=== PATIENT | male | born 1985 | race Caucasian/White ===

== ENCOUNTER 2017-02-07 13:50 | Emergency (ER) | payer MEDICAID ==
[2017-02-07 14:05] VITALS: BP 122/78
--- NOTE | 2017-02-07 14:30 | EDM.PDOC ---
ED HPI GENERAL MEDICAL PROBLEM - General Chief Complaint: Allergic Reaction Stated Complaint: BEE STING ABOUT 24 HOURS AGO Time Seen by Provider: 02/07/17 14:05 Source of Information: Reports: Patient History Limitations: Reports: No Limitations - History of Present Illness INITIAL COMMENTS - FREE TEXT/NARRATIVE: Patient presents to the emergency room today with complaints of pain and swelling to left hand from a bee sting yesterday. He denies difficulty breathing, edema of lips or tongue. Onset: Sudden Onset Date: 02/06/17 Duration: Day(s): Location: Reports: Upper Extremity, Right, Other (sting to right ear, right lower leg and left hand. ) Quality: Reports: Ache, Throbbing Severity: Moderate Improves with: Reports: None Worsens with: Reports: Movement Associated Symptoms: Reports: No Other Symptoms Treatments DOCTOR OF PODIATRIC MEDICINE: Reports: Other (see below) (benadryl) Left Hand Pain Score (Numeric/FACES): 5 - Related Data Allergies Allergy/AdvReac Type Severity Reaction Status Date / Time No Known Allergies Allergy Verified 03/25/14 11:05 Home Meds: Home Meds Ibuprofen 800 mg PO 03/25/14 [History] Butalb/Acetaminophen/Caffeine [Hlhiso-Mkbbynfa-Fmav 50-325-40] 50 mg PO PRN 12/20 [History] LORazepam [Ativan] 1 mg PO Q8H PRN 04/11/16 [History] Past Medical History Other HEENT History: R EYE REPAIR X 16 - Past Surgical History Other Musculoskeletal Surgeries/Procedures:: LLE AND FOOT REPAIR X 2 - History Comment History Comment: 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 Social & Family History - Tobacco Use Smoking Status *Q: Unknown Ever Smoked Second Hand Smoke Exposure: No - Alcohol Use Days Per Week of Alcohol Use: 0 - Recreational Drug Use Recreational Drug Use: Yes Recreational Drug Type: Reports: Marijuana/Hashish Recreational Drug Use Frequency: Monthly ED ROS ALLERGIC REACTION - Review of Systems Review Of Systems: See Below Constitutional: Denies: Fever, Chills HEENT: Reports: Ear Pain. Denies: Ear Discharge, Throat Pain, Throat Swelling Respiratory: Denies: Shortness of Breath, Wheezing, Pleuritic Chest Pain, Cough , Sputum Cardiovascular: Denies: Chest Pain, Lightheadedness, Palpitations, PND, Syncope Endocrine: Denies: No Symptoms GI/Abdominal: Denies: No Symptoms Musculoskeletal: Reports: Other (Pain to left hand with edema. ) Skin: Reports: Other (edema and warmth to left hand, right ear. ) Neurological: Denies: Confusion, Dizziness, Headache, Numbness, Paresthesia, Trouble Speaking, Difficulty Walking, Weakness, Gait Disturbance Psychiatric: Reports: No Symptoms Hematologic/Lymphatic: Reports: No Symptoms Immunologic: Reports: No Symptoms ED EXAM GENERAL NO PERIP PULSE - Physical Exam Exam: See Below Text/Narrative:: Bill is an alert, oriented and pleasant 31 year old male. He reports he was mowing his grass yesterday and was stung 3 to 4 times by bees. Bee stings to right ear, right lower leg and left base of middle finger. He reports he chugged some childrens liquid benadryl after the stings. He denies SOB or difficulty breathing, however reports he continues to have pain and edema to left hand. Exam Limited By: No Limitations General Appearance: Alert, WD/WN, No Apparent Distress Eye Exam: Bilateral Eye: EOMI (With exception of right eye lack of muscle control wich is not new. ), PERRL Ears: Normal External Exam, Normal Canal, Hearing Grossly Normal, Normal TMs, Other (No edema or tenderness to area of bee sting on right ear lobe. ) Nose: Normal Inspection, Normal Mucosa, No Blood Throat/Mouth: Normal Inspection, Normal Lips, Normal Teeth, Normal Gums, Normal Oropharynx, Normal Voice, No Airway Compromise Head: Atraumatic, Normocephalic Neck: Normal Inspection, Supple, Non-Tender, Full Range of Motion Respiratory/Chest: No Respiratory Distress, Lungs Clear, Normal Breath Sounds, No Accessory Muscle Use, Chest Non-Tender Cardiovascular: Normal Peripheral Pulses, Regular Rate, Rhythm, No Edema, No Gallop, No Murmur Back Exam: Normal Inspection, Full Range of Motion. No: CVA Tenderness (R), CVA Tenderness (L) Extremities: No Pedal Edema, Normal Capillary Refill, Increased Warmth, Other ( trace edema to left hand, full range of motion, sensation intact. All other extremities have normal inspection, color. ) Neurological: Alert, Oriented, CN II-XII Intact, Normal Cognition, Normal Gait, Normal Reflexes, No Motor/Sensory Deficits Psychiatric: Normal Affect, Normal Mood Skin Exam: Warm, Dry Lymphatic: No Adenopathy Course - Vital Signs Last Recorded V/S: Last Vital Signs Temp 36.2 C 02/07/17 14:03 Pulse 78 02/07/17 14:03 Resp 15 02/07/17 14:03 BP 122/78 02/07/17 14:03 Pulse Ox 98 02/07/17 14:03 - Re-Assessments/Exams Free Text/Narrative Re-Assessment/Exam: 02/07/17 14:35 Patient questions answered, he is in agreement with plan. Departure - Departure Time of Disposition: 14:25 Disposition: Home, Self-Care 01 Condition: Good Clinical Impression: Insect bite, Edema of hand, Bee sting reaction - Discharge Information Instructions: Insect Bite, Bee, Wasp, or Hornet Sting Referrals: Mario Mitchell Sr, MD [Primary Care Provider] - Forms: ED Department Discharge Additional Instructions: You are suffering a localized reaction of the left hand from a bee sting. This can cause pain, swelling and tenderness. There is no sign of infection at this time. You can take prednisone 40mg by mouth once a day for 5 days. You can also take ibuprofen 800mg by mouth three times a day for pain. Use of benadryl 50mg by mouth two or three times a day can also help. Be careful with new exposures to bee stings, watch for difficulty breathing, lip or tongue swelling. Return for worsening, issues or concerns. - Assessment/Plan Assessment:: Insect bite Bee sting reaction Edema of hand - left Plan: Localized reaction to bee sting, no sign of infection at this time. Patient can take prednisone 40mg by mouth once a day for 5 days to help with edema, inflammation. He can also take ibuprofen 800mg by mouth three times a day for pain. Use of benadryl 50mg by mouth two or three times a day can also help. Patient needs to be careful with new exposures to bee stings, watch for difficulty breathing, lip or tongue swelling. Return for worsening, issues or concerns. Patient counseled about use of benadryl along with other chronic sedating medications and medical marijuana, he verbalized understanding.
== END 2017-02-07 15:08 | disposition home or self-care (01) ==
LOC: JP.ED 13:50
DX: T63.441A Toxic effect of venom of bees, accidental (unintentional), initial encounter (principal)
CPT/HCPCS: 99283

== ENCOUNTER 2017-03-17 17:40 | Emergency (ER) | payer MEDICAID ==
[2017-03-17 18:04] VITALS: BP 140/81
--- NOTE | 2017-03-17 18:58 | EDM.PDOC ---
ED HPI GENERAL MEDICAL PROBLEM - General Chief Complaint: Upper Extremity Injury/Pain Stated Complaint: PAINFUL NECK AND RIGHT SHOULDER Time Seen by Provider: 03/17/17 18:09 Source of Information: Reports: Patient History Limitations: Reports: No Limitations - History of Present Illness INITIAL COMMENTS - FREE TEXT/NARRATIVE: this patient complains of pain in the upper part of the right trapezius right shoulder and right side of his neck after a fall on his shoulder last night. He says it sign of hurts to move his neck a little bit and when he moves his right shoulder. No other injuries. He has been taking some Flexeril already and also takes some lorazepam when necessary. shoulder Pain Score (Numeric/FACES): 9 - Related Data Allergies Allergy/AdvReac Type Severity Reaction Status Date / Time No Known Allergies Allergy Verified 03/19/17 18:38 Home Meds: Home Meds Ibuprofen 800 mg PO Q6HR PRN 03/25/14 [History] LORazepam [Ativan] 1 mg PO Q8H PRN 04/11/16 [History] ClonazePAM [KlonoPIN] 1 mg PO Q4HR PRN 03/17/17 [History] Diclofenac Sodium [Diclofenac Sodium] 4 gm .XX QID 03/17/17 [History] EPINEPHrine [Epinephrine] 0.3 mg PO ASDIRECTED 03/17/17 [History] Escitalopram [Lexapro] 20 mg PO DAILY 03/17/17 [History] Morphine [MS Contin] 15 mg PO BEDTIME 03/17/17 [History] Naproxen [Naprosyn] 500 mg PO BID PRN 03/17/17 [History] Pramipexole [Mirapex] 0.25 mg PO BEDTIME 03/17/17 [History] oxyCODONE HCl [Oxycodone HCl] 10 - 20 mg PO Q4HR PRN 03/17/17 [History] Past Medical History Other HEENT History: R EYE REPAIR X 16 Musculoskeletal History: Reports: Fracture, Other (See Below) Other Musculoskeletal History: shoulder pain. 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 Social & Family History - Tobacco Use Smoking Status *Q: Never Smoker Second Hand Smoke Exposure: No - Caffeine Use Caffeine Use: Reports: Coffee - Alcohol Use Days Per Week of Alcohol Use: 0 - Recreational Drug Use Recreational Drug Use: Yes Recreational Drug Type: Reports: Marijuana/Hashish, Opium Recreational Drug Use Frequency: Daily Review of Systems - Review of Systems Review Of Systems: ROS reveals no pertinent complaints other than HPI. ED EXAM, GENERAL - Physical Exam Exam: See Below Exam Limited By: No Limitations General Appearance: Alert, WD/WN, Mild Distress Neck: Normal Inspection Back Exam: Muscle Spasm (some muscle spasm of the upper fibers of the right trapezius) Extremities: Other (full range of motion of the right shoulder.) Course - Vital Signs Last Recorded V/S: Last Vital Signs Temp 36.9 C 03/17/17 18:08 Pulse 81 03/17/17 18:08 Resp 20 03/17/17 18:08 BP 140/81 03/17/17 18:08 Pulse Ox 97 03/17/17 18:08 Departure - Departure Time of Disposition: 18:54 Disposition: Home, Self-Care 01 Condition: Fair Clinical Impression: Trapezius muscle spasm - Discharge Information Instructions: Musculoskeletal Pain Referrals: Mario Mitchell Sr, MD [Primary Care Provider] - Forms: ED Department Discharge Additional Instructions: You have a spasm of the upper fibers of the trapezius muscle. The nerves to this muscle come from your neck and you may have a pinched nerve that is causing the spasm. This is separate from the AC joint problem. Try increasing the lorazepam to 2 mg 3 times per day. In stead of using Flexeril, try the new medication Soma. These meds along with your other ones can cause a lot of sedation so use with extreme caution. Definitely don't drink any alcohol. Plan to see your doctor in the next few days.
== END 2017-03-17 19:04 | disposition home or self-care (01) ==
LOC: JP.ED 17:40
DX: M62.838 Other muscle spasm (principal); F41.9 Anxiety disorder, unspecified; F32.9 Major depressive disorder, single episode, unspecified; Z79.899 Other long term (current) drug therapy
CPT/HCPCS: 99283

== ENCOUNTER 2017-03-19 17:28 | Emergency (ER) | payer MEDICAID ==
[2017-03-19 18:25] VITALS: BP 122/77
[2017-03-19] MEDS ORDERED: HYDROmorphone 0.5 MG/0.5 ML Syringe IM ONE (20:39)
--- NOTE | 2017-03-19 20:59 | EDM.PDOC ---
ED HPI GENERAL MEDICAL PROBLEM - General Chief Complaint: General Stated Complaint: R SHOULDER INJURY Time Seen by Provider: 03/19/17 18:58 Source of Information: Reports: Patient History Limitations: Reports: No Limitations - History of Present Illness INITIAL COMMENTS - FREE TEXT/NARRATIVE: History of present illness: [31-year-old male presenting stating that he fell 4 days ago on his right shoulder and has been having trouble with pain in that shoulder since that time. He's unable to abduct his arm without pain and feels that his right shoulder is swollen. Apparently is in a program in the [facility] for chronic pain and I reviewed the [place] prescription monitoring program and found that he had received 180 10 mg oxycodone's or 5 mg oxycodone's that would last him 30 days and so I question him about this and he called his doctor and I spoke with her on the phone and she deferred due to my judgment as far as whether not I would provide him with any additional pain medication based on my history and examination of the patient. Patient himself states that he plans to follow-up with his pain doctor tomorrow in the [facility] and just wants to be able to get by until tomorrow when he can do that.] Review of systems: As per history of present illness and below otherwise all systems reviewed and negative. Past medical history: As per history of present illness and as reviewed below otherwise noncontributory. Surgical history: As per history of present illness and as reviewed below otherwise noncontributory. Social history: No reported history of drug or alcohol abuse. Family history: As per history of present illness and as reviewed below otherwise noncontributory. Physical exam: HEENT: Atraumatic, normocephalic, pupils reactive, negative for conjunctival pallor or scleral icterus, mucous membranes moist, throat clear, neck supple, nontender, trachea midline. Lungs: Clear to auscultation, breath sounds equal bilaterally, chest nontender. Heart: S1S2, regular, negative for clicks, rubs, or JVD. Extremities: Examination of the right shoulder does show tenderness to palpation along the clavicle and the deltoid muscle and pain with any effort to abduct his right shoulder both passive and active. He does seem to have some tenderness on palpation of his before meals joint as well. Neuro: Awake, alert, oriented. Exam nonfocal. Diagnostics: [X-rays of the right shoulder reveal no fractures] Therapeutics: [Patient was given Dilaudid 0.5 mg IM and sent out with 10 Percocet, /] Impression: [Right shoulder injury] Plan: [He is given a disc of the x-rays in provided with additional pain medication and will follow up with his pain doctor tomorrow the cities.] Definitive disposition and diagnosis as appropriate pending reevaluation and review of above. Right Shoulder Pain Score (Numeric/FACES): 9 - Related Data Allergies Allergy/AdvReac Type Severity Reaction Status Date / Time No Known Allergies Allergy Verified 03/19/17 18:38 Home Meds: Home Meds Ibuprofen 800 mg PO Q6HR PRN 03/25/14 [History] LORazepam [Ativan] 1 mg PO Q8H PRN 04/11/16 [History] ClonazePAM [KlonoPIN] 1 mg PO Q4HR PRN 03/17/17 [History] Diclofenac Sodium [Diclofenac Sodium] 4 gm .XX QID 03/17/17 [History] EPINEPHrine [Epinephrine] 0.3 mg PO ASDIRECTED 03/17/17 [History] Escitalopram [Lexapro] 20 mg PO DAILY 03/17/17 [History] Morphine [MS Contin] 15 mg PO BEDTIME 03/17/17 [History] Naproxen [Naprosyn] 500 mg PO BID PRN 03/17/17 [History] Pramipexole [Mirapex] 0.25 mg PO BEDTIME 03/17/17 [History] oxyCODONE HCl [Oxycodone HCl] 10 - 20 mg PO Q4HR PRN 03/17/17 [History] Past Medical History Other HEENT History: R EYE REPAIR X 16 Musculoskeletal History: Reports: Fracture, Other (See Below) Other Musculoskeletal History: shoulder pain. 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 Social & Family History - Tobacco Use Smoking Status *Q: Former Smoker Used Tobacco, but Quit: Yes Month Tobacco Last Used: 0 Second Hand Smoke Exposure: No - Caffeine Use Caffeine Use: Reports: Coffee - Alcohol Use Days Per Week of Alcohol Use: 0 - Recreational Drug Use Recreational Drug Use: No Recreational Drug Type: Reports: Marijuana/Hashish, Opium Recreational Drug Use Frequency: Daily ED ROS GENERAL - Review of Systems Review Of Systems: ROS reveals no pertinent complaints other than HPI. ED EXAM, GENERAL - Physical Exam Exam: See Below Course - Vital Signs Last Recorded V/S: Last Vital Signs Temp 36.0 C 03/19/17 18:37 Pulse 69 03/19/17 18:37 Resp 16 03/19/17 18:37 BP 122/77 03/19/17 18:37 Pulse Ox 96 03/19/17 18:37 - Orders/Labs/Meds Orders: Active Orders 24 hr Category Date Time Status Shoulder Comp Rt [CR] Stat Exams 03/19/17 19:30 Ordered Meds: Medications Discontinued Medications Generic Name Dose Route Start Last Admin Trade Name Freq PRN Reason Stop Dose Admin Hydromorphone HCl 0.5 mg 03/19/17 20:39 Dilaudid IM 03/19/17 20:40 ONETIME ONE Departure - Departure Time of Disposition: 20:59 Disposition: Home, Self-Care 01 Condition: Good Clinical Impression: Right shoulder injury Qualifiers: Encounter type: initial encounter Qualified Code(s): S49.91XA - Unspecified injury of right shoulder and upper arm, initial encounter - Discharge Information Referrals: Mario Mitchell Sr, MD [Primary Care Provider] - Additional Instructions: Please follow-up with your chronic pain doctor tomorrow as we discussed. - My Orders Last 24 Hours: My Active Orders 03/19/17 19:30 Shoulder Comp Rt [CR] Stat - Assessment/Plan Last 24 Hours: My Active Orders 03/19/17 19:30 Shoulder Comp Rt [CR] Stat
--- NOTE | 2017-03-20 11:50 | CR ---
Mild AC joint hypertrophy. No evidence for fracture.
== END 2017-03-19 21:10 | disposition home or self-care (01) ==
LOC: JP.ED 17:28
DX: S49.91XA Unspecified injury of right shoulder and upper arm, initial encounter (principal); F41.9 Anxiety disorder, unspecified; F32.9 Major depressive disorder, single episode, unspecified; Z79.899 Other long term (current) drug therapy; Z87.891 Personal history of nicotine dependence; X58.XXXA Exposure to other specified factors, initial encounter
CPT/HCPCS: 73030; 96372; 99284; J1170

== ENCOUNTER 2017-05-29 17:30 | Emergency (ER) | payer MEDICAID ==
[2017-05-29 17:52] VITALS: BP 127/71
[2017-05-29] MEDS ORDERED: HYDROmorphone 1 MG/ML Syringe IM ONE (18:14)
--- NOTE | 2017-05-29 18:17 | EDM.PDOC ---
ED HPI GENERAL MEDICAL PROBLEM - General Chief Complaint: Lower Extremity Injury/Pain Stated Complaint: FELL HURT L ANKLE AND HIP Time Seen by Provider: 05/29/17 18:08 Source of Information: Reports: Patient, RN Notes Reviewed History Limitations: Reports: No Limitations - History of Present Illness INITIAL COMMENTS - FREE TEXT/NARRATIVE: 31-year-old gentleman presents emergency department day complaint of left ankle pain, he has known history of chronic reflex dystrophy is on a pain contract does take combination of MS Contin and oxycodone for pain control which she has taken today he recently had an injury at home where he slipped on some ice and rolled his left ankle he is having difficulty ambulating and difficulty keeping his pain under control he states he has intolerances to tramadol and Toradol as well Left Ankle Pain Score (Numeric/FACES): 9 - Related Data Allergies Allergy/AdvReac Type Severity Reaction Status Date / Time No Known Allergies Allergy Verified 03/19/17 18:38 Home Meds: Home Meds Ibuprofen 800 mg PO Q6HR PRN 03/25/14 [History] ClonazePAM [KlonoPIN] 1 mg PO Q4HR PRN 03/17/17 [History] EPINEPHrine [Epinephrine] 0.3 mg PO ASDIRECTED 03/17/17 [History] Morphine [MS Contin] 15 mg PO BEDTIME 03/17/17 [History] oxyCODONE HCl [Oxycodone HCl] 10 - 20 mg PO Q4HR PRN 03/17/17 [History] Past Medical History HEENT History: Reports: Impaired Vision Other HEENT History: R EYE REPAIR X 16 Musculoskeletal History: Reports: Fracture, Other (See Below) Other Musculoskeletal History: shoulder pain. 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 Social & Family History - Tobacco Use Smoking Status *Q: Former Smoker Used Tobacco, but Quit: Yes Month Tobacco Last Used: 10 years ago Second Hand Smoke Exposure: No - Caffeine Use Caffeine Use: Reports: Coffee, Soda - Alcohol Use Days Per Week of Alcohol Use: 0 - Recreational Drug Use Recreational Drug Use: Yes Recreational Drug Type: Reports: Marijuana/Hashish Recreational Drug Use Frequency: Daily Review of Systems - Review of Systems Review Of Systems: See Below Respiratory: Reports: No Symptoms Cardiovascular: Reports: No Symptoms Musculoskeletal: Reports: Joint Pain (Ankle pain left) Skin: Reports: No Symptoms Neurological: Reports: Numbness (Not new), Tingling ED EXAM, GENERAL - Physical Exam Exam: See Below Free Text/Narrative:: Examination of the left ankle I don't appreciate any erythema there is no edema exam is difficult as he is uncomfortable with any amount of palpation laterally or medially no maneuvers can be performed, he can ambulate but he favors the right foot pedal pulses +2 Exam Limited By: No Limitations General Appearance: Alert, WD/WN, No Apparent Distress Respiratory/Chest: No Respiratory Distress Course - Vital Signs Last Recorded V/S: Last Vital Signs Temp 96.8 F 05/29/17 17:48 Pulse 87 05/29/17 17:48 Resp 18 05/29/17 17:48 BP 127/71 05/29/17 17:48 Pulse Ox 96 05/29/17 17:48 - Orders/Labs/Meds Orders: Active Orders 24 hr Category Date Time Status Ankle Min 3V Lt [CR] Stat Exams 05/29/17 18:14 Taken Meds: Medications Discontinued Medications Generic Name Dose Route Start Last Admin Trade Name Freq PRN Reason Stop Dose Admin Hydromorphone HCl 1 mg 05/29/17 18:14 Dilaudid IM 05/29/17 18:15 ONETIME ONE Departure - Departure Time of Disposition: 19:01 Disposition: Home, Self-Care 01 Condition: Poor Clinical Impression: Narcotic dependency, continuous Left ankle pain Qualifiers: Chronicity: acute Qualified Code(s): M25.572 - Pain in left ankle and joints of left foot - Discharge Information Referrals: Mario Mitchell Sr, MD [Primary Care Provider] - Forms: ED Department Discharge Additional Instructions: Use Percocet as needed for breakthrough pain, Please followup with your primary care provider in 3-5 days if not better, please call return to the emergency department with worsening of symptoms. - My Orders Last 24 Hours: My Active Orders 05/29/17 18:14 Ankle Min 3V Lt [CR] Stat - Assessment/Plan Last 24 Hours: My Active Orders 05/29/17 18:14 Ankle Min 3V Lt [CR] Stat Plan: Assessment Acuity = acute Site and laterality = left ankle pain complicated patient with history of extensive narcotic use Etiology = secondary to trauma Manifestations = tolerance to opiates Location of injury = Home left ankle x-ray Labs: Left ankle x-ray I did review films myself I cannot appreciate any acute process, the official read from radiology is pending Plan I did given him 1 mg Dilaudid IM he states this provided no relief of his pain he is on a substantial amount of narcotics I stated I am uncomfortable providing him any more narcotics in the acute setting I did nic him 10 Percocet 5/325 one tab by mouth 3 times a day when necessary so that he can make it to his pain clinic physician on Friday, I am suspicious of this gentleman as this is a similar story on the last note Patient was in agreement with the plan all questions were answered, they were instructed to return to the emergency department or call for worsening symptoms. This note was dictated using [employer] voice recognition software please call with any questions.
--- NOTE | 2017-05-30 09:10 | CR ---
Ankle Min 3V Lt HISTORY: Pain COMPARISON: None FINDINGS: Fracture or dislocation. Mild soft tissue swelling.
== END 2017-05-29 19:17 | disposition home or self-care (01) ==
LOC: JP.ED 17:30
DX: M25.572 Pain in left ankle and joints of left foot (principal); F11.20 Opioid dependence, uncomplicated; Z88.5 Allergy status to narcotic agent; Z87.891 Personal history of nicotine dependence; W00.0XXA Fall on same level due to ice and snow, initial encounter; Y92.009 Unspecified place in unspecified non-institutional (private) residence as the place of occurrence of the external cause
CPT/HCPCS: 73610-26-LT; 73610-LT; 96372; 99284-25; J1170

== ENCOUNTER 2017-06-07 13:47 | Emergency (ER) | payer MEDICAID ==
[2017-06-07 14:54] VITALS: BP 124/67
--- NOTE | 2017-06-07 15:31 | EDM.PDOC ---
ED HPI GENERAL MEDICAL PROBLEM - General Chief Complaint: Lower Extremity Injury/Pain Stated Complaint: PAIN IN LEFT FOOT Time Seen by Provider: 06/07/17 15:11 Source of Information: Reports: Patient, Old Records, RN Notes Reviewed History Limitations: Reports: No Limitations - History of Present Illness INITIAL COMMENTS - FREE TEXT/NARRATIVE: 31-year-old gentleman presents emergency department day complaint of left foot pain he was evaluated by his primary care on 03 June underwent x-rays of the ankle and foot which show only soft tissue swelling no fracture was noted, he states the pain is unbearable eyes difficult for him to ambulate and his usual narcotic medication does not control the pain. The mechanism of action he states that he was walking caught his toe in a hole which then bent the foot backward at the ankle which then caused the plantar surface of his foot to touch his calf Left Ankle Pain Score (Numeric/FACES): 8 - Related Data Allergies Allergy/AdvReac Type Severity Reaction Status Date / Time No Known Allergies Allergy Verified 06/07/17 14:56 Home Meds: Home Meds ClonazePAM [KlonoPIN] 1 mg PO Q4HR PRN 03/17/17 [History] EPINEPHrine [Epinephrine] 0.3 mg PO ASDIRECTED 03/17/17 [History] Morphine [MS Contin] 15 mg PO TID 03/17/17 [History] oxyCODONE HCl [Oxycodone HCl] 10 - 20 mg PO Q4HR PRN 03/17/17 [History] Past Medical History HEENT History: Reports: Impaired Vision Other HEENT History: R EYE REPAIR X 16 Musculoskeletal History: Reports: Fracture, Other (See Below) Other Musculoskeletal History: shoulder pain. CRPS in the left ankle Psychiatric History: Reports: Addiction (Narcotics), Anxiety, Bipolar, Depression, PTSD - Past Surgical History Head Surgeries/Procedures: Reports: None HEENT Surgical History: Reports: None Other Musculoskeletal Surgeries/Procedures:: LLE AND FOOT REPAIR X 2 - History Comment History Comment: Patient reports he is disabled and take shelter narcotic medication as well as medical marijuana. Social & Family History - Family History Family Medical History: Noncontributory - Tobacco Use Smoking Status *Q: Former Smoker Years of Tobacco use: 15 Packs/Tins Daily: 1 Used Tobacco, but Quit: Yes Month Tobacco Last Used: december Tobacco Use Comment: quit 12 years ago Second Hand Smoke Exposure: No - Caffeine Use Caffeine Use: Reports: Coffee, Soda - Alcohol Use Days Per Week of Alcohol Use: 0 - Recreational Drug Use Recreational Drug Use: Yes Drug Use in Last 12 Months: Yes Recreational Drug Type: Reports: Other (see below) Other Recreational Drug Type: medical marijuana Recreational Drug Use Frequency: Daily Review of Systems - Review of Systems Review Of Systems: See Below Constitutional: Reports: No Symptoms Respiratory: Reports: No Symptoms Cardiovascular: Reports: No Symptoms Musculoskeletal: Reports: Foot Pain Neurological: Reports: No Symptoms ED EXAM, GENERAL - Physical Exam Exam: See Below Free Text/Narrative:: Examination of left foot I do appreciate some mild amount of edema around the ankle there is some faint bruising which is noted at the medial aspect below the medial malleolus pedal pulse is +2 limited range of motion secondary to pain unable to perform any other aspects of the exam secondary to pain Course - Vital Signs Last Recorded V/S: Last Vital Signs Temp 97.8 F 06/07/17 14:51 Pulse 71 06/07/17 14:51 Resp 16 06/07/17 14:51 BP 124/67 06/07/17 14:51 Pulse Ox 93 L 06/07/17 14:51 - Orders/Labs/Meds Orders: Active Orders 24 hr Category Date Time Status Foot wo Cont Lt [CT] Stat Exams 06/07/17 15:27 Taken Meds: Medications Discontinued Medications Generic Name Dose Route Start Last Admin Trade Name Aruna PRN Reason Stop Dose Admin Ketorolac Tromethamine 60 mg 06/07/17 16:18 06/07/17 16:24 Toradol IM 06/07/17 16:19 60 mg ONETIME ONE Administration Departure - Departure Time of Disposition: 16:43 Disposition: Home, Self-Care 01 Condition: Fair Clinical Impression: Sprain of left foot Qualifiers: Encounter type: initial encounter Qualified Code(s): S93.602A - Unspecified sprain of left foot, initial encounter - Discharge Information Referrals: Mario Mitchell Sr, MD [Primary Care Provider] - Forms: ED Department Discharge Additional Instructions: Please followup with your primary care provider in 3-5 days if not better, please call return to the emergency department with worsening of symptoms. - My Orders Last 24 Hours: My Active Orders 06/07/17 15:27 Foot wo Cont Lt [CT] Stat - Assessment/Plan Last 24 Hours: My Active Orders 06/07/17 15:27 Foot wo Cont Lt [CT] Stat Plan: Assessment Acuity = acute Site and laterality = left foot sprain, cannot gentleman with chronic narcotic use Etiology = secondary to trauma Manifestations = none Location of injury = Home Lab values = CT scan of the midfoot and hindfoot show no acute process Plan I did review CT scan results with him he was provided Toradol, I also consult with his pain clinic spoke to the physician medical transcription editor recommended no narcotics if felt they were not warranted I could not appreciate any fracture there was none on CT scan I felt narcotics were not appropriate since he has a heavy dose of narcotics already, keep follow-up appointment with primary care Patient was in agreement with the plan all questions were answered, they were instructed to return to the emergency department or call for worsening symptoms. This note was dictated using [employer] voice recognition software please call with any questions.
[2017-06-07] MEDS ORDERED: Ketorolac 60 MG/2 ML SDV IM ONE (16:18)
== END 2017-06-07 16:35 | disposition home or self-care (01) ==
LOC: JP.ED 13:47
DX: S93.602A Unspecified sprain of left foot, initial encounter (principal); Z87.891 Personal history of nicotine dependence; W19.XXXA Unspecified fall, initial encounter
CPT/HCPCS: 73700; 96372; 99284; J1885

== ENCOUNTER 2017-09-13 18:29 | Emergency (ER) | payer MEDICARE, MEDICAID ==
[2017-09-13] MEDS ORDERED: HYDROmorphone 1 MG/ML Syringe IVPUSH ONE (18:52)
[2017-09-13] MEDS ORDERED: Ondansetron 4 MG/2 ML SDV IVPUSH ONE (18:52)
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
[2017-09-13] MEDS ORDERED: Lactated Ringers 1,000 ML IV SCH (19:00)
[2017-09-13] MEDS ORDERED: Sodium Chloride 0.9% 10 ML Syringe FLUSH ONE (19:01)
[2017-09-13] MEDS ORDERED: Sodium Chloride 0.9% 100 ML IV ONE (19:01)
[2017-09-13] MEDS: Sodium Chloride 0.9% 10 ML Syringe FLUSH PRN ×4 (19:10→21:08)
[2017-09-13] MEDS ORDERED: Iopamidol 612 MG/ML 100 ML Bottle IV SCH (19:15)
[2017-09-13] MEDS ORDERED: HYDROmorphone 0.5 MG/0.5 ML Syringe IVPUSH ONE (20:19)
[2017-09-13 21:34] VITALS: BP 112/65
== END 2017-09-13 21:32 ==
LOC: JP.ED 18:29
DX: S27.0XXA Traumatic pneumothorax, initial encounter (principal); S22.42XA Multiple fractures of ribs, left side, initial encounter for closed fracture; S36.032A Major laceration of spleen, initial encounter; V86.52XA Driver of snowmobile injured in nontraffic accident, initial encounter
CPT/HCPCS: 36415; 71260; 72125; 74177; 80053; 81001; 85025; 96361; 96374; 96375; 96376; 99285; G0480; J1170; J2405; J7050; J7120; Q9967

== ENCOUNTER 2019-06-05 10:15 | Emergency (ER) | payer MEDICARE, MEDICAID ==
[2019-06-05 10:30] VITALS: BP 123/57; PULSE 76
[2019-06-05] MEDS ORDERED: Ketorolac 30 MG/ML SDV IM ONE (10:53)
[2019-06-05] MEDS ORDERED: Acetaminophen 500 MG Tab PO ONE (10:53)
[2019-06-05] MEDS ORDERED: Prochlorperazine 10 MG/2 ML SDV IM ONE (10:54)
--- NOTE | 2019-06-05 11:28 | EDM.PDOC ---
ED HPI GENERAL MEDICAL PROBLEM - General Chief Complaint: Headache Stated Complaint: HEADACHE VOMITING Time Seen by Provider: 06/05/19 11:15 Source of Information: Reports: Patient History Limitations: Reports: No Limitations - History of Present Illness INITIAL COMMENTS - FREE TEXT/NARRATIVE: 33-year-old with history of chronic pain due to traumatic injuries presents with concerns of headache, runny nose, myalgias, fatigue, and fever. Reports that the symptoms started yesterday and kept him up much of the night. He endorses a headache that feels like a band around his entire head. He has no neck stiffness or pain. No new focal weakness or vision changes. He also notes a mild cough. Headache Pain Score (Numeric/FACES): 10 - Related Data Allergies Allergy/AdvReac Type Severity Reaction Status Date / Time bee pollen Allergy Anaphylactic Verified 06/05/19 10:40 Shock Home Meds: Home Meds EPINEPHrine [Epinephrine] 0.3 mg PO ASDIRECTED 03/17/17 [History] oxyCODONE HCl [Oxycodone HCl] 10 - 20 mg PO Q4HR PRN 03/17/17 [History] Aspirin/Acetaminophen/Caffeine [Migraine Formula Caplet] 1 tab PO ASDIRECTED PRN 06/05/19 [History] Past Medical History HEENT History: Reports: Impaired Vision Other HEENT History: R EYE REPAIR X 16 Cardiovascular History: Reports: None Respiratory History: Reports: None Genitourinary History: Reports: None Musculoskeletal History: Reports: Fracture, Other (See Below) Other Musculoskeletal History: shoulder pain. CRPS in the left ankle Neurological History: Reports: Headaches, Chronic, Head Trauma, Migraines Psychiatric History: Reports: Addiction, Anxiety, Bipolar, Depression, PTSD Endocrine/Metabolic History: Reports: Obesity/BMI 30+ Hematologic History: Reports: None Immunologic History: Reports: None Oncologic (Cancer) History: Reports: None Dermatologic History: Reports: None - Infectious Disease History Infectious Disease History: Reports: Chicken Pox - Past Surgical History Head Surgeries/Procedures: Reports: None HEENT Surgical History: Reports: None Endocrine Surgical History: Reports: None Neurological Surgical History: Reports: None Musculoskeletal Surgical History: Reports: Other (See Below) Other Musculoskeletal Surgeries/Procedures:: LLE AND FOOT REPAIR X 2 - History Comment History Comment: Patient reports he is disabled and take detention narcotic medication as well as medical marijuana. Social & Family History - Family History Family Medical History: Noncontributory - Tobacco Use Smoking Status *Q: Never Smoker Second Hand Smoke Exposure: No - Caffeine Use Caffeine Use: Reports: Coffee, Energy Drinks - Recreational Drug Use Recreational Drug Use: Yes Drug Use in Last 12 Months: Yes Recreational Drug Type: Reports: Marijuana/Hashish Recreational Drug Use Frequency: Daily ED ROS GENERAL - Review of Systems Review Of Systems: See Below Constitutional: Reports: Fever, Chills HEENT: Reports: Rhinitis Respiratory: Reports: Cough Cardiovascular: Reports: No Symptoms Endocrine: Reports: No Symptoms GI/Abdominal: Reports: No Symptoms : Reports: No Symptoms Musculoskeletal: Reports: Muscle Pain Skin: Reports: No Symptoms Neurological: Reports: Headache Psychiatric: Reports: No Symptoms Hematologic/Lymphatic: Reports: No Symptoms Immunologic: Reports: No Symptoms - Physical Exam Exam: See Below Exam Limited By: No Limitations General Appearance: Alert, No Apparent Distress Ears: Normal External Exam Nose: Normal Inspection Throat/Mouth: Normal Inspection Head Exam: Atraumatic, Normocephalic Neck: Normal Inspection. No: Limited Range of Motion Respiratory/Chest: Lungs Clear Cardiovascular: Regular Rate, Rhythm GI/Abdominal: Soft, Non-Tender Neuro Exam (Abbreviated): Alert, Oriented, CN II-XII Intact, No Motor/Sensory Deficits (other than chronic LLE weakness). No: Confused, Disoriented, Abnormal Gait Back Exam: Normal Inspection Extremities: Normal Inspection Psychiatric: Normal Affect, Normal Mood Skin Exam: Warm, Dry Course - Vital Signs Last Recorded V/S: Last Vital Signs Temp 37.7 C 06/05/19 10:42 Pulse 76 06/05/19 10:42 Resp 18 06/05/19 10:42 BP 123/57 L 06/05/19 10:42 Pulse Ox 96 06/05/19 10:42 - Orders/Labs/Meds Meds: Medications Discontinued Medications Generic Name Dose Route Start Last Admin Trade Name Freq PRN Reason Stop Dose Admin Acetaminophen 1,000 mg 06/05/19 10:53 06/05/19 11:01 Tylenol Extra Strength PO 06/05/19 10:54 1,000 mg ONETIME ONE Administration Ketorolac Tromethamine 30 mg 06/05/19 10:53 06/05/19 11:02 Toradol IM 06/05/19 10:54 30 mg ONETIME ONE Administration Prochlorperazine Edisylate 5 mg 06/05/19 10:54 06/05/19 11:02 Compazine IM 06/05/19 10:55 5 mg ONETIME ONE Administration - Re-Assessments/Exams Free Text/Narrative Re-Assessment/Exam: 33-year-old presents with concerns of headache, myalgias, cough, rhinitis, and fatigue. On exam he has normal vitals and is in no apparent distress. Constillation of symptoms consistent with a influenza-like illness. He has no meningismus or evidence of [employer] infection. He was treated with Toradol, Tylenol, and Compazine for headache. He is safe for discharge with supportive cares which we discussed. 06/05/19 11:44 Departure - Departure Time of Disposition: 11:26 Disposition: Home, Self-Care 01 Clinical Impression: Viral illness, Tension-type headache - Discharge Information *PRESCRIPTION DRUG MONITORING PROGRAM REVIEWED*: No *COPY OF PRESCRIPTION DRUG MONITORING REPORT IN PATIENT NICCI: No Instructions: Tension Headache, Adult, [id number], Viral Illness, Adult Referrals: Mario Mitchell Sr, MD [Primary Care Provider] - Forms: ED Department Discharge Additional Instructions: Please continues to use tylenol and ibuprofen as needed for your headache, muscle aches, and fever Push fluids As discussed, return the ER for significant worsening of symptoms, high fever, weakness, neck stiffness, or other symptoms which are concerning to you
== END 2019-06-05 11:34 | disposition home or self-care (01) ==
LOC: JP.ED 10:15
DX: B34.9 Viral infection, unspecified (principal); G44.209 Tension-type headache, unspecified, not intractable; E66.9 Obesity, unspecified; Z68.30 Body mass index [BMI] 30.0-30.9, adult; Z91.030 Bee allergy status
CPT/HCPCS: 96372; 99283; 99284; A9270; J0780; J1885

== ENCOUNTER 2019-08-17 06:56 | Day surgery (SDC) | payer MEDICARE, MEDICAID ==
[2019-08-17] MEDS ORDERED: Propofol 200 MG/20 ML SDV ONE ×2 (07:30→09:33)
[2019-08-17] MEDS ORDERED: Sodium Chloride 0.9% 1,000 ML IV SCH (07:30)
[2019-08-17] MEDS ORDERED: Midazolam 1 MG/ML 2 ML SDV ONE (07:31)
[2019-08-17] MEDS ORDERED: fentaNYL 100 MCG/2 ML SDV ONE (07:31)
[2019-08-17 10:19] VITALS: BP 134/73; PULSE 69
--- NOTE | 2019-08-18 08:28 | PROC ---
DATE OF PROCEDURE: 08/17/2019 SURGEON: Mario Mitchell MD INDICATION: Bill is a 33-year-old male who has had significant abdominal pain. When he bends forward, he has pain and when he straightens up, he feels okay. He does not have pain with eating, does not have pain when lying down, only when he is sitting and bending forward. A CT of the abdomen was done, which was unremarkable. The risks and benefits were explained to the patient, and he was taken the OR. PROCEDURE IN DETAIL: Anesthesia was given by nurse line pilot. During the procedure, we used 2 mL of fentanyl, 2 mg of Versed, and 400 mg of propofol. The Olympus 180 scope was used. It was placed into the pharynx and esophagus without difficulty and advanced under direct vision. We did get into the stomach and initially could not find the pylorus. On retroflexion of the tube, we could easily see the fundus and right below that was the pylorus. A difficult time getting through that. Eventually, the stomach moved and we were able to see the pylorus in its normal shape and position. We then advanced the tube into the first and second part of the duodenum. Upon retraction of the tube, we noted no lesions or ulceration in the duodenum. The tube was brought back into the stomach. The greater and lesser curvatures were unremarkable. The fundus was unremarkable. This tube was slowly retracted after air was withdrawn from the stomach. The remainder of the esophagus was unremarkable. The vocal cords moved symmetrically. No obvious pathology noted. The tube was removed. The patient tolerated the procedure well. I feel that part of the stomach must have been in the chest cavity and once the stomach was inflated, it came down into the abdomen and the architecture appeared normal. PREOPERATIVE DIAGNOSIS: Abdominal pain. POSTOPERATIVE DIAGNOSIS: Displacement of the stomach into the chest cavity with no other abnormality in the stomach. I feel that his pain will most likely be gone. If this continues, we will need to do a barium swallow to identify the exact course and cause of the pain and then may need a surgical repair of the diaphragm, which I expect is the problem causing the stomach to go up into the chest cavity. This will need to be determined by objective data. Mario Mitchell MD /[id number]
== END 2019-08-17 11:20 | disposition home or self-care (01) ==
LOC: JP.SDS 06:56
PROVIDERS: ATTEND Internal Medicine
DX: K31.89 Other diseases of stomach and duodenum (principal); Z88.8 Allergy status to other drugs, medicaments and biological substances; Z91.048 Other nonmedicinal substance allergy status
CPT/HCPCS: 43235; J2250; J2704; J3010; J7030

== ENCOUNTER 2021-03-05 14:57 | Emergency (ER) | payer OTHER, MEDICARE, MEDICAID ==
[2021-03-05 15:24] VITALS: BP 139/78; PULSE 73
[2021-03-05] MEDS ORDERED: HYDROmorphone 0.5 MG/0.5 ML Syringe IM ONE (17:48)
[2021-03-05] MEDS ORDERED: Cyclobenzaprine 10 MG Tab PO ONE (17:49)
--- NOTE | 2021-03-05 18:16 | CRLCT ---
For Patients: As a result of the Cures Act, medical imaging exams and procedure reports are released immediately into your electronic medical record. You may view this report before your referring provider. If you have questions, please contact your health care provider. INDICATION: Trauma. TECHNIQUE: Axial images. Sagittal and coronal reconstructions. COMPARISON: None. FINDINGS: There is no abnormal intracranial mass effect or midline shift. No acute intracranial hemorrhage. No areas of abnormal attenuation are seen within the brain. CSF spaces are age-appropriate. No skull fracture. IMPRESSION: No CT evidence of an acute intracranial abnormality. Dictated by Karlo Knox MD @ 03/05/2021 6:13:25 PM Please note that all CT scans at this facility use dose modulation, iterative reconstruction, and/or weight-based dosing when appropriate to reduce radiation dose to as low as reasonably achievable. Dictated by: Karlo Knox MD @ 03/05/2021 18:13:34 (Electronically Signed)
--- NOTE | 2021-03-05 18:22 | CRLCT ---
For Patients: As a result of the Century Cures Act, medical imaging exams and procedure reports are released immediately into your electronic medical record. You may view this report before your referring provider. If you have questions, please contact your health care provider. INDICATION: Trauma. TECHNIQUE: Axial images. Sagittal and coronal reconstructions. COMPARISON: 09/13/2017. FINDINGS: No abnormal prevertebral soft tissue swelling. Normal alignment of the cervical spine. No cervical spine fracture. Disc degeneration is seen at C5-6 with mild disc space narrowing and endplate and uncovertebral joint spurring. Facet joints appear unremarkable. Small to moderate-sized posterior right paracentral disc protrusion at C4-5 indents the ventral aspect of the thecal sac resulting in at least mild spinal stenosis. This finding is new compared to the prior study. Small to moderate-sized posterior right paracentral disc bulge osteophyte complex at C5-6 indents the ventral aspect of the thecal sac and results in at least mild spinal stenosis, and narrows the right foramen. These finding are stable compared to the prior study. IMPRESSION: 1. No cervical spine fracture or traumatic malalignment. 2. C4-5 and C5-6 disc pathology as noted above. Dictated by Karlo Knox MD @ 03/05/2021 6:20:41 PM Please note that all CT scans at this facility use dose modulation, iterative reconstruction, and/or weight-based dosing when appropriate to reduce radiation dose to as low as reasonably achievable. Dictated by: Karlo Knox MD @ 03/05/2021 18:21:11 (Electronically Signed)
--- NOTE | 2021-03-05 18:28 | CRLCT ---
For Patients: As a result of the Cures Act, medical imaging exams and procedure reports are released immediately into your electronic medical record. You may view this report before your referring provider. If you have questions, please contact your health care provider. INDICATION: Trauma. Back pain. TECHNIQUE: Axial images. Sagittal and coronal reconstructions. COMPARISON: 03/06/2017. FINDINGS: Normal curvature and alignment of the thoracic spine. No acute thoracic spine fracture is identified. Minor anterior endplate degenerate spurring is seen at multiple levels. No significant disc height loss. Facet joints are unremarkable. IMPRESSION: No thoracic spectral spine fracture or traumatic malalignment. Dictated by Karlo Knox MD @ 03/05/2021 6:26:52 PM Please note that all CT scans at this facility use dose modulation, iterative reconstruction, and/or weight-based dosing when appropriate to reduce radiation dose to as low as reasonably achievable. Dictated by: Karlo Knox MD @ 03/05/2021 18:26:55 (Electronically Signed)
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
== END 2021-03-05 19:02 | disposition home or self-care (01) ==
LOC: JP.ED 14:57
DX: S20.229A Contusion of unspecified back wall of thorax, initial encounter (principal); M54.2 Cervicalgia; R51.9 Headache, unspecified; V89.2XXA Person injured in unspecified motor-vehicle accident, traffic, initial encounter
CPT/HCPCS: 70450; 72125; 72128; 96372; 99284; A9270; J1170

== ENCOUNTER 2021-03-23 00:18 | Emergency (ER) | payer MEDICARE, MEDICAID ==
[2021-03-23 00:39] VITALS: BP 142/91; PULSE 82
--- NOTE | 2021-03-23 00:43 | EDM.PDOC ---
ED HPI GENERAL MEDICAL PROBLEM - General Chief Complaint: Allergic Reaction Stated Complaint: BEE STINGS- USED EPI PEN Time Seen by Provider: 03/23/21 00:39 Source of Information: Reports: Patient, Family, RN Notes Reviewed History Limitations: Reports: No Limitations - History of Present Illness INITIAL COMMENTS - FREE TEXT/NARRATIVE: 35-year-old gentleman presents emergency department today following a bee sting, he was stung about 1 hour prior to presentation in the emergency department did self administer epinephrine pen believes he was stung by bee he is not having any ill effects at this time - Related Data Allergies Allergy/AdvReac Type Severity Reaction Status Date / Time bee pollen Allergy Anaphylactic Verified 03/23/21 00:33 Shock lisinopril Allergy Headache Verified 03/23/21 00:33 Home Meds: Home Meds EPINEPHrine [Epinephrine] 0.3 mg PO ASDIRECTED 03/17/17 [History] oxyCODONE HCl [Oxycodone HCl] 20 mg PO QID 03/17/17 [History] Ibuprofen [Motrin] 800 mg PO BIDM PRN 01/25/21 [History] Cannabidiol (Cbd) Extract [Cannabis (Medical)] 10 mg INH DAILY PRN 03/05/21 [History] Past Medical History HEENT History: Reports: Impaired Vision Other HEENT History: R EYE REPAIR X 18 Musculoskeletal History: Reports: Back Pain, Chronic, Fracture, Other (See Below) Other Musculoskeletal History: shoulder pain. CRPS in the left ankle. L thumb injury 12/26/20 Neurological History: Reports: Headaches, Chronic, Head Trauma, Migraines Psychiatric History: Reports: Anxiety, Bipolar, Depression, PTSD Endocrine/Metabolic History: Reports: Obesity/BMI 30+ Hematologic History: Reports: None Immunologic History: Reports: None Oncologic (Cancer) History: Reports: None Dermatologic History: Reports: None - Infectious Disease History Infectious Disease History: Reports: Chicken Pox - Past Surgical History Head Surgeries/Procedures: Reports: None HEENT Surgical History: Reports: None Cardiovascular Surgical History: Reports: None Respiratory Surgical History: Reports: None GI Surgical History: Reports: None Endocrine Surgical History: Reports: None Neurological Surgical History: Reports: None Musculoskeletal Surgical History: Reports: Other (See Below) Other Musculoskeletal Surgeries/Procedures:: LLE AND FOOT REPAIR X 2 - History Comment History Comment: Patient reports he is disabled and take alf narcotic medication as well as medical marijuana. Social & Family History - Family History Family Medical History: No Pertinent Family History - Tobacco Use Tobacco Use Status *Q: Never Tobacco User - Caffeine Use Caffeine Use: Reports: Coffee - Recreational Drug Use Recreational Drug Use: No ED ROS ALLERGIC REACTION - Review of Systems Review Of Systems: See Below Constitutional: Reports: No Symptoms HEENT: Reports: No Symptoms Respiratory: Reports: No Symptoms Cardiovascular: Reports: No Symptoms GI/Abdominal: Reports: No Symptoms ED EXAM GENERAL NO PERIP PULSE - Physical Exam Exam: See Below Exam Limited By: No Limitations General Appearance: Alert, WD/WN, No Apparent Distress Throat/Mouth: No Airway Compromise Respiratory/Chest: No Respiratory Distress, Lungs Clear, Normal Breath Sounds, No Accessory Muscle Use, Chest Non-Tender Cardiovascular: Regular Rate, Rhythm, No Murmur Course - Vital Signs Last Recorded V/S: Last Vital Signs Temp 97.1 F 03/23/21 00:34 Pulse 82 03/23/21 00:34 Resp 16 03/23/21 00:34 BP 142/91 H 03/23/21 00:34 Pulse Ox 100 03/23/21 00:34 Departure - Departure Time of Disposition: 01:54 Disposition: Home, Self-Care 01 Condition: Good, Fair Clinical Impression: Allergic reaction to bee sting - Discharge Information Instructions: Bee, Wasp, or Hornet Sting, Adult Referrals: Mario Mitchell Sr, MD [Primary Care Provider] - Forms: ED Department Discharge Additional Instructions: Continue symptomatic care may use Benadryl as needed for symptoms, please followup with your primary care provider in 3-5 days if not better, please call return to the emergency department with worsening of symptoms. Sepsis Event Note (ED) - Focused Exam Vital Signs: Vital Signs Temp Pulse Resp BP Pulse Ox 03/23/21 00:34 97.1 F 82 16 142/91 H 100 - Assessment/Plan Plan: Assessment Acuity = acute Site and laterality = allergic reaction Etiology = bee sting Manifestations = none Location of injury = Home Lab values = none Plan Continue to use EpiPen as needed follow-up primary care as needed This note was dictated using [employer] recognition software please call with any questions on syntax or grammar.
== END 2021-03-23 02:00 | disposition home or self-care (01) ==
LOC: JP.ED 00:18
DX: T63.441A Toxic effect of venom of bees, accidental (unintentional), initial encounter (principal); E66.9 Obesity, unspecified; Z68.30 Body mass index [BMI] 30.0-30.9, adult; Z91.030 Bee allergy status; Z88.8 Allergy status to other drugs, medicaments and biological substances; Z79.899 Other long term (current) drug therapy
CPT/HCPCS: 99282

== ENCOUNTER 2025-04-14 17:40 | Emergency (ER) | payer OTHER, MEDICARE, MEDICAID ==
[2025-04-14 17:57] VITALS: BP 144/84; PULSE 84
== END 2025-04-14 19:45 | disposition home or self-care (01) ==
LOC: JP.ED 17:40
DX: S00.83XA Contusion of other part of head, initial encounter (principal); E66.9 Obesity, unspecified; Z68.31 Body mass index [BMI] 31.0-31.9, adult; Z91.030 Bee allergy status; Z88.8 Allergy status to other drugs, medicaments and biological substances; Z79.899 Other long term (current) drug therapy; Y99.0 Civilian activity done for income or pay; X58.XXXA Exposure to other specified factors, initial encounter
CPT/HCPCS: 70486; 99001; 99283